=== PATIENT | female | born 1965 | race Caucasian/White ===

== ENCOUNTER 2018-11-14 10:15 | Day surgery (SDC) | payer OTHER ==
[~2018-11-14] VITALS: Ht 154.9 cm; Wt 117.0 kg
[~2018-11-14 10:15] MED LIST: ALBU90OI INH; AMLO5 PO; ANORO ELLIPTA1 EACH INH; ASPI81CH; Adipex-P37.5 MG PO; BLOOD PRESSURE MED; DHEA PO; ESTR2 PO; LEVO-T100 MCG PO; LORA1 PO; MELO7.5 PO; METF500C PO; NAPR500 PO; PARO10 PO; PROBIOTIC1 EAC1 PO; PROG100 PO
--- NOTE | 2018-11-14 12:04 | NUR ---
PT ADMITTED TO [facility]. AGREES WITH PLANNED PROCEDURE. MEDS, ALLERGIES AND HX REVIEWED. LUNG SOUNDS CLEAR.
--- NOTE | 2018-11-14 12:12 | NUR ---
TOLERATED BOWEL PREP. STATES LAST BM CLEAR.
--- NOTE | 2018-11-14 12:28 | NUR ---
11/14/18 1228 Dean Arvizu 3-LEAD EKG REVIEWED WITH PHYSICIAN PRIOR TO START OF PROCEDURE.PATIENT CONFIRMS NPO STATUS AND AGREES WITH SCHEDULED PROCEDURE.History, Chart, Medications and Allergies reviewed before start of procedure. MONITOR INTACT WITH CONTINUOUS PULSE OXIMETRY AND INTERMITTENT BP.O2 VIA N/C INTACT THROUGHOUT SEDATION/PROCEDURE.
--- NOTE | 2018-11-14 13:49 | NUR ---
Patient up to Ambulate independently. Gait steady. Discharge instructions reviewed with patient. Patient verbalizes understanding. Copy given to patient to take home. Patient States Post-Procedure ride home has been arranged. Discharged via wheelchair to private car for ride home. Pt's daughter was waiting in the parking lot and provided the ride home.
== END 2018-11-14 22:37 | disposition home or self-care (01) ==
LOC: ORSCMMR 10:15 → ORD 11:45 → ORSCMMR 22:37
PROVIDERS: Surgery
PROC: 0DJD8ZZ Inspection of Lower Intestinal Tract, Via Natural or Artificial Opening Endoscopic (ICD-10-PCS; principal; 2018-11-14 11:45)
DX: K92.1 Melena (principal); K57.30 Diverticulosis of large intestine without perforation or abscess without bleeding; R10.32 Left lower quadrant pain; G47.33 Obstructive sleep apnea (adult) (pediatric); E11.9 Type 2 diabetes mellitus without complications; J44.9 Chronic obstructive pulmonary disease, unspecified; I10 Essential (primary) hypertension; E03.9 Hypothyroidism, unspecified; K76.0 Fatty (change of) liver, not elsewhere classified; E78.5 Hyperlipidemia, unspecified; M79.7 Fibromyalgia; F41.9 Anxiety disorder, unspecified; E66.01 Morbid (severe) obesity due to excess calories; Z68.42 Body mass index [BMI] 45.0-49.9, adult; Z79.84 Long term (current) use of oral hypoglycemic drugs; Z79.899 Other long term (current) drug therapy; Z87.891 Personal history of nicotine dependence
CPT/HCPCS: J7120

== ENCOUNTER 2019-04-13 18:32 | Emergency (ER) | payer OTHER ==
[~2019-04-13] VITALS: Ht 154.9 cm; Wt 117.9 kg
[2019-04-13] MEDS ORDERED: Cymbalta20 MG PO (18:45)
[2019-04-13] MEDS ORDERED: BUSP5 (18:45)
[2019-04-13] MEDS ORDERED: Valium5 MG PO (21:32)
[2019-04-13] MEDS ORDERED: NAPR550 PO (21:32)
[2019-04-13] MEDS ORDERED: Norco 5-325 Ta1 EACH PO (21:32)
== END 2019-04-13 23:03 | disposition home or self-care (01) ==
LOC: ER 18:32
DX: S52.122A Displaced fracture of head of left radius, initial encounter for closed fracture (principal); S70.12XA Contusion of left thigh, initial encounter; K21.9 Gastro-esophageal reflux disease without esophagitis; I10 Essential (primary) hypertension; W01.0XXA Fall on same level from slipping, tripping and stumbling without subsequent striking against object, initial encounter
CPT/HCPCS: 73080; 73200; 73502; 73552; 96374; 96375; 99284-25; A9270; J1170; J1885; J2060

== ENCOUNTER → 2019-07-05 | Outpatient (CLI) | payer OTHER ==
[~2019-07-05] MED LIST changes: +BUSP5; +Cymbalta20 MG PO; +NAPR550 PO; +Norco 5-325 Ta1 EACH PO; +Valium5 MG PO
== END ==
LOC: LAB 19:47 → LAB SHORT 19:47
DX: E55.9 Vitamin D deficiency, unspecified (principal)
CPT/HCPCS: 82306

== ENCOUNTER 2019-08-25 15:01 | Emergency (ER) | payer OTHER ==
[~2019-08-25] VITALS: Ht 157.5 cm; Wt 115.2 kg
[2019-08-25 15:49] LABS: BASOPHILS ABSOLUTE AUTO 0.05 K/mm3 (0.00-0.23); BASOPHILS PERCENT AUTO 0 % (0-2); EOSINOPHILS ABSOLUTE AUTO 0.15 K/mm3 (0.00-0.68); EOSINOPHILS PERCENT AUTO 1 % (0-6); Hematocrit 46.9 % (33.0-51.0); IMMATURE GRAN ABSOLUTE AUTO 0.04 K/mm3 (0.00-0.10); IMMATURE GRAN PERCENT AUTO 0 % (0-1); LYMPHOCYTES ABSOLUTE AUTO 5.37 K/mm3 (0.84-5.20); LYMPHOCYTES PERCENT AUTO 39 % (21-46); MONOCYTES ABSOLUTE AUTO 1.06 K/mm3 (0.16-1.47); MONOCYTES PERCENT AUTO 8 % (4-13); Mean Corpuscular HGB 28.6 pg (26.0-34.0); Mean Corpuscular Volume 90 fL (80-100); Mean Platelet Volume 10.8 fL (9.1-12.4); NEUTROPHILS ABSOLUTE AUTO 7.22 K/mm3 (1.96-9.15); NEUTROPHILS PERCENT AUTO 52 % (41-73); Platelet Count 342 K/mm3 (150-400); RDW Coefficient Variation 13.9 % (11.7-14.2); RDW Standard Deviation 45.6 fL (35.1-46.3); Red Blood Cell Count 5.24 M/mm3 (3.80-5.20); White Blood Cell Count 13.89 K/mm3 (4.00-11.30)
[2019-08-25 16:23] LABS: Alanine Aminotransfer (ALT/SGP 29 U/L (12-78); Albumin, Blood 3.6 g/dL (3.4-5.0); Albumin/Globulin Ratio 0.9 (0.8-1.8); Alk Phos 76 U/L (50-136); Anion Gap 5 mmol/L (6-16); Aspartate Aminotrans (AST/SGOT 14 U/L (12-37); Bilirubin, Total 0.2 mg/dL (0.1-1.0); Blood Urea Nitrogen 19 mg/dL (8-24); Bun/Creatinine Ratio 23.8 (12.0-20.0); CO2, Blood 29 mmol/L (21-32); Calcium, Blood 9.4 mg/dL (8.5-10.1); Chloride, Blood 108 mmol/L (98-108); Globulin, Blood 3.9 g/dL (2.2-4.0); Glomerular Filtration Rate >60 (60-); Glucose, Blood 66 mg/dL (70-99); Potassium, Blood 4.3 mmol/L (3.5-5.5); Sodium, Blood 142 mmol/L (136-145); Total Protein, Blood 7.5 g/dL (6.4-8.2)
[2019-08-25 20:57] LABS: Source, Urine Clean Catch
[2019-08-25 21:00] LABS: Bilirubin, Urine Neg (Neg); Blood, Urine Neg (Neg); Glucose Qualitative, Urine Neg (Neg); Ketones, Urine Neg (Neg); Leukocyte Esterase, Urine Neg (Neg); Nitrite, Urine Neg (Neg); Protein, Urine Neg (Neg); Urobilinogen, Urine NORM (Normal)
[2019-08-25 21:05] LABS: Appearance, Urine Clear (Clear); Color, Urine Yellow (P-Yellow)
[2019-08-25] MEDS ORDERED: ONDA4ODT MM (21:17)
== END 2019-08-25 21:33 | disposition home or self-care (01) ==
LOC: ER 15:01
PROVIDERS: Emergency Medicine; Physician Assistant
DX: E11.649 Type 2 diabetes mellitus with hypoglycemia without coma (principal); D72.829 Elevated white blood cell count, unspecified; I10 Essential (primary) hypertension; K21.9 Gastro-esophageal reflux disease without esophagitis; J44.9 Chronic obstructive pulmonary disease, unspecified; Z91.038 Other insect allergy status; Z91.048 Other nonmedicinal substance allergy status; Z88.7 Allergy status to serum and vaccine; Z88.5 Allergy status to narcotic agent; Z91.040 Latex allergy status; Z91.018 Allergy to other foods; Z79.899 Other long term (current) drug therapy; Z79.51 Long term (current) use of inhaled steroids; Z87.891 Personal history of nicotine dependence
CPT/HCPCS: 36415; 71046; 80053; 81003; 82947; 83880; 84439; 84443; 84484; 85025; 85379; 93005; 93010; 96360; 99285-25; J7030

== ENCOUNTER 2020-02-07 05:34 | Day surgery (SDC) | payer OTHER ==
[~2020-02-07] VITALS: Ht 154.9 cm; Wt 122.0 kg
[~2020-02-07 05:34] MED LIST changes: +ASPI81CH PO; +BUSP10 PO; +CLOP75 PO; +ONDA4ODT MM
[2020-02-07] MEDS ORDERED: CARV6.25 PO (06:32)
[2020-02-07] MEDS ORDERED: ATOR80 PO (06:32)
[2020-02-07] MEDS ORDERED: MELO7.5 PO (06:33)
[2020-02-07] MEDS ORDERED: EPIPEN0.3 MG/0.3 IM (06:33)
--- NOTE | 2020-02-07 07:40 | NUR ---
PT RETURNED TO RECOVERY ROOM IN [facility]. RIGHT RADIAL TR BAND SITE SOFT WITH NO HEMATOMA, NO BLEEDING. PT SITTING UP TALKING WITH DR QUINTANILLA. CALL LIGHT IN REACH.
--- NOTE | 2020-02-07 08:02 | NUR ---
NO CHANGES TO RIGHT RADIAL SITE.
--- NOTE | 2020-02-07 08:29 | NUR ---
NO CHANGES TO RIGHT TR BAND SITE. PT EATING BREAKFAST.
--- NOTE | 2020-02-07 09:11 | NUR ---
PT AMBULATED TO BR TO VOID. TRACK OOZING NOTED; 2 CC OF AIR ADDED TO TR BAND. RIGHT INDEX FINGER LESS THAN 3 SEC CAP REFILL. SPO2 95% RIGHT INDEX FINGER.
--- NOTE | 2020-02-07 09:42 | NUR ---
9 CC OF AIR REMOVED FROM NOW DEFLATED RIGHT TR BAND; NO HEMATOMA, NO BLEEDING. DISCHARGE INSTRUCTIONS REVIEWED, ALL QUESTIONS ANSWERED.
--- NOTE | 2020-02-07 10:00 | NUR ---
NO CHANGES TO DEFLATED RIGHT TR BAND.
--- NOTE | 2020-02-07 10:11 | NUR ---
NO CHANGES TO DEFLATED RIGHT TR BAND SITE.
--- NOTE | 2020-02-07 10:48 | NUR ---
DEFLATED RIGHT TR BAND REMOVED AND POLYMEM PLACED OVER RIGHT RADIAL SITE; NO HEMATOMA, NO BLEEDING WITH WRIST BOARD IN PLACE. 20 G IV REMOVED FROM LEFT AC WITH INTACT CANNULA. PT AMBULATED TO BR TO VOID. PT ESCORTED OUT VIA WHEELCHAIR ESCORT.
== END 2020-02-07 10:53 | disposition home or self-care (01) ==
LOC: MHTC 05:34
PROC: 4A023N7 Measurement of Cardiac Sampling and Pressure, Left Heart, Percutaneous Approach (ICD-10-PCS; principal; 2020-02-07)
PROC: B2111ZZ Fluoroscopy of Multiple Coronary Arteries using Low Osmolar Contrast (ICD-10-PCS; principal; 2020-02-07)
DX: R94.39 Abnormal result of other cardiovascular function study (principal); I10 Essential (primary) hypertension; E78.5 Hyperlipidemia, unspecified; E11.9 Type 2 diabetes mellitus without complications; E03.9 Hypothyroidism, unspecified; J44.9 Chronic obstructive pulmonary disease, unspecified; E66.01 Morbid (severe) obesity due to excess calories; Z88.5 Allergy status to narcotic agent; Z91.013 Allergy to seafood; Z79.02 Long term (current) use of antithrombotics/antiplatelets; Z79.82 Long term (current) use of aspirin; Z79.899 Other long term (current) drug therapy; Z87.891 Personal history of nicotine dependence
CPT/HCPCS: 93458; 99152; 99153; C1769; C1894; J1644; J2250; J3010; J7030; Q9967

== ENCOUNTER 2021-07-10 10:55 | Day surgery (SDC) | payer OTHER ==
[~2021-07-10] VITALS: Ht 154.9 cm; Wt 121.3 kg
[~2021-07-10 10:55] MED LIST changes: +ATOR80 PO; +CARV6.25 PO; +EPIPEN0.3 MG/0.3 IM
[2021-07-10] MEDS ORDERED: Bisoprolol Fuma10 MG PO (14:08)
[2021-07-10] MEDS ORDERED: POTCHL20ER PO (14:08)
[2021-07-10] MEDS ORDERED: CELE100 PO (14:09)
[2021-07-10] MEDS ORDERED: Cymbalta20 MG PO (14:10)
[2021-07-10] MEDS ORDERED: TORSE20 PO (14:11)
--- NOTE | 2021-07-10 14:49 | NUR ---
07/10/21 1449 Jocy Elaine (Trena 9 IV ATTEMPTS BY FOUR RN & ONE MA. PT TOLERATED VERY WELL, STS IT ALWAYS TAKES SEVERAL ATTEMPTS. PT STS ANESTHESIOLOGIST USUALLY HAVE TO PLACE IV. PT REQUESTED CONTINUED ATTEMPTS SHE DID NOT WANT HER PROCEDURE TO BE CANCELLED.
--- NOTE | 2021-07-10 15:18 | NUR ---
07/10/21 1517 Chemo Herrera 1 MG EPI ADDED TO EACH OF THE FIRST 3 BAGS OF LR PER ORDER FOR IRRIGATION.
--- NOTE | 2021-07-10 16:37 | NUR ---
07/10/21 1637 Colin,Amy PT RECIEVED FROM OR ACCOMPANIED BY DR. NAVARRETE. AMBU BAG USED BREIFLY FOR CYANOSIS/APNEA UNABLE TO OBTAIN PULSE OX. PT. AWAKENED AND COLOR/OXYGENATION IMPROVED. O2 SAT UP TO 88% ON NRB. ALBUTEROL NEB ORDERED AND GIVEN. PT. O2 SAT INCREASED TO 92% ON THE NEB. CONTINUED TO IMPROVE OVER COURSE OF 5-10 MINUTES. NOW AT 94% ON 8LNRB MASK. LUNGS HAVE WHEEZES THAT ARE SLIGHTLY DECREASED THAN PRIOR TO TREATMENT.
--- NOTE | 2021-07-10 17:51 | NUR ---
07/10/21 1751 Babita Galloway 1749 O2 AT 94% ON 2L/NC. PT. PLACED TO RA.
== END 2021-07-10 19:10 | disposition home or self-care (01) ==
LOC: ORSCSDS 10:55
PROVIDERS: Orthopaedic Surgery
PROC: 0RNK4ZZ Release Left Shoulder Joint, Percutaneous Endoscopic Approach (ICD-10-PCS; principal; 2021-07-10 12:30)
PROC: 0LM24ZZ Reattachment of Left Shoulder Tendon, Percutaneous Endoscopic Approach (ICD-10-PCS; principal; 2021-07-10 12:30)
DX: M75.122 Complete rotator cuff tear or rupture of left shoulder, not specified as traumatic (principal); M75.22 Bicipital tendinitis, left shoulder; M75.42 Impingement syndrome of left shoulder; M75.32 Calcific tendinitis of left shoulder; I10 Essential (primary) hypertension; J44.9 Chronic obstructive pulmonary disease, unspecified; K21.9 Gastro-esophageal reflux disease without esophagitis; E03.9 Hypothyroidism, unspecified; E78.5 Hyperlipidemia, unspecified; F41.8 Other specified anxiety disorders; E66.01 Morbid (severe) obesity due to excess calories; Z68.43 Body mass index [BMI] 50.0-59.9, adult; Z79.899 Other long term (current) drug therapy
CPT/HCPCS: 82947; A9270; C1713; J0171; J0690; J1100; J2001; J2250; J2405; J2704; J3010; J7120

== ENCOUNTER → 2022-02-05 | Outpatient (CLI) | payer OTHER ==
[~2022-02-05] MED LIST changes: +Bisoprolol Fuma10 MG PO; +CELE100 PO; +POTCHL20ER PO; +TORSE20 PO
[2022-02-05 14:10] LABS: BASOPHILS ABSOLUTE AUTO 0.04 K/mm3 (0.00-0.23); BASOPHILS PERCENT AUTO 0 % (0-2); EOSINOPHILS ABSOLUTE AUTO 0.15 K/mm3 (0.00-0.68); EOSINOPHILS PERCENT AUTO 1 % (0-6); Hematocrit 49.5 % (33.0-51.0); Hemoglobin 16.2 g/dL (11.5-16.0); IMMATURE GRAN ABSOLUTE AUTO 0.05 K/mm3 (0.00-0.10); IMMATURE GRAN PERCENT AUTO 0 % (0-1); LYMPHOCYTES ABSOLUTE AUTO 3.63 K/mm3 (0.84-5.20); LYMPHOCYTES PERCENT AUTO 32 % (21-46); MONOCYTES ABSOLUTE AUTO 0.63 K/mm3 (0.16-1.47); MONOCYTES PERCENT AUTO 6 % (4-13); Mean Corpuscular HGB 29.2 pg (26.0-34.0); Mean Corpuscular HGB Conc 32.7 g/dL (31.5-36.5); Mean Corpuscular Volume 89 fL (80-100); Mean Platelet Volume 10.7 fL (9.1-12.4); NEUTROPHILS ABSOLUTE AUTO 6.83 K/mm3 (1.96-9.15); NEUTROPHILS PERCENT AUTO 60 % (41-73); Platelet Count 298 K/mm3 (150-400); RDW Coefficient Variation 14.4 % (11.7-14.2); RDW Standard Deviation 46.7 fL (35.1-46.3); Red Blood Cell Count 5.55 M/mm3 (3.80-5.20); White Blood Cell Count 11.33 K/mm3 (4.00-11.30)
[2022-02-05 14:36] LABS: Alanine Aminotransfer (ALT/SGP 32 U/L (12-78); Albumin, Blood 3.9 g/dL (3.4-5.0); Alk Phos 94 U/L (40-126); Anion Gap 10 mmol/L (6-16); Aspartate Aminotrans (AST/SGOT 18 U/L (12-37); Bilirubin, Total 0.3 mg/dL (0.1-1.0); Blood Urea Nitrogen 20 mg/dL (8-24); CO2, Blood 28 mmol/L (21-32); Calcium, Blood 9.5 mg/dL (8.5-10.1); Chloride, Blood 105 mmol/L (98-108); Creatinine, Blood 0.74 mg/dL (0.40-1.00); Globulin, Blood 3.8 g/dL (2.2-4.0); Glomerular Filtration Rate >60 (60-); Glucose, Blood 98 mg/dL (70-99); Potassium, Blood 4.6 mmol/L (3.5-5.5); Sodium, Blood 143 mmol/L (136-145); Thyroid Stimulating Hormone 0.493 uIU/mL (0.360-4.800); Total Protein, Blood 7.7 g/dL (6.4-8.2)
== END | disposition home or self-care (01) ==
LOC: LAB SHORT 14:03 → LAB 14:03
PROVIDERS: Chiropractor
DX: R07.9 Chest pain, unspecified (principal); R53.83 Other fatigue
CPT/HCPCS: 80053; 83880; 84443; 84484; 85025; 85379

== ENCOUNTER → 2022-04-15 | Outpatient (CLI) | payer OTHER ==
[2022-04-15 15:14] LABS: Source, Urine Clean Catch
[2022-04-15 19:26] LABS: Appearance, Urine Turbid (Clear); Bilirubin, Urine Neg (Neg); Blood, Urine 2+ (Neg); Color, Urine Yellow (P-Yellow); Glucose Qualitative, Urine Neg (Neg); Ketones, Urine Neg (Neg); Leukocyte Esterase, Urine 3+ (Neg); Nitrite, Urine Neg (Neg); Protein, Urine 2+ (Neg); Urobilinogen, Urine NORM (Normal)
[2022-04-15 20:05] LABS: Amorphous Heavy (0-Heavy); Bacteria Many /hpf; Red Blood Cells, Urine 0-2 /hpf (0-2); Squamous Epithelial Cells Few /hpf (Few); White Blood Cells, Urine 25-50 /hpf (0-5)
== END | disposition home or self-care (01) ==
LOC: LAB 15:10 → LAB SHORT 15:10
PROVIDERS: Family Medicine
DX: N30.01 Acute cystitis with hematuria (principal)
CPT/HCPCS: 81001; 87077; 87086; 87186

== ENCOUNTER → 2023-05-10 | Outpatient (CLI) | payer OTHER ==
[2023-05-10 15:04] LABS: Percent Saturation 15.4 % (15.0-50.0)
[2023-05-10 15:11] LABS: Progesterone 4.56 ng/mL
[2023-05-11 23:07] LABS: DHEA-SULFATE 17.3 ug/dL (29.4-220.5)
== END | disposition home or self-care (01) ==
LOC: LAB 12:57 → LAB SHORT 12:57
PROVIDERS: Family Medicine
DX: E05.90 Thyrotoxicosis, unspecified without thyrotoxic crisis or storm (principal); L65.9 Nonscarring hair loss, unspecified; Z86.39 Personal history of other endocrine, nutritional and metabolic disease; Z90.79 Acquired absence of other genital organ(s)
CPT/HCPCS: 82627; 82670; 82728; 83540; 83550; 84144; 86376

== ENCOUNTER 2023-06-26 09:33 | Emergency (ER) | payer OTHER ==
[~2023-06-26] VITALS: Ht 154.9 cm; Wt 108.9 kg
[2023-06-26 09:35] VITALS: BP 128/65
[2023-06-26 11:21] LABS: Source, Urine Clean Catch
[2023-06-26 11:33] LABS: Appearance, Urine Clear (Clear); Bilirubin, Urine Neg (Neg); Blood, Urine Neg (Neg); Color, Urine Yellow (P-Yellow); Glucose Qualitative, Urine Neg (Neg); Ketones, Urine Neg (Neg); Leukocyte Esterase, Urine Neg (Neg); Nitrite, Urine Neg (Neg); Protein, Urine Neg (Neg); Urobilinogen, Urine NORM (Normal)
[2023-06-26] MEDS ORDERED: ACET500 PO (12:02)
[2023-06-26] MEDS ORDERED: DIAZ2 PO (12:02)
[2023-06-26] MEDS ORDERED: Ibuprofen600 MG PO (12:02)
[2023-06-30] MEDS ORDERED: DIAZ2 PO (15:22)
[2023-06-30] MEDS ORDERED: ACET500 PO (15:22)
[2023-06-30] MEDS ORDERED: Ibuprofen600 MG PO (15:22)
== END 2023-06-26 13:00 | disposition home or self-care (01) ==
LOC: ER 09:33
PROVIDERS: Emergency Medicine
DX: M51.36 Other intervertebral disc degeneration, lumbar region (principal); R10.30 Lower abdominal pain, unspecified; I10 Essential (primary) hypertension; J44.9 Chronic obstructive pulmonary disease, unspecified; Z91.030 Bee allergy status; Z91.013 Allergy to seafood; Z91.048 Other nonmedicinal substance allergy status; Z88.5 Allergy status to narcotic agent; Z91.040 Latex allergy status; Z88.8 Allergy status to other drugs, medicaments and biological substances; Z91.018 Allergy to other foods; Z79.899 Other long term (current) drug therapy; Z87.891 Personal history of nicotine dependence
CPT/HCPCS: 72131; 81003; 96372; 99284-25; J1885; J7512

== ENCOUNTER 2023-07-20 13:43 | Emergency (ER) | payer OTHER ==
[~2023-07-20] VITALS: Ht 167.6 cm; Wt 72.6 kg
[~2023-07-20 13:43] MED LIST changes: +ACET500 PO; +DIAZ2 PO; +Ibuprofen600 MG PO
[2023-07-20 14:15] VITALS: BP 130/56
== END 2023-07-20 14:21 | disposition home or self-care (01) ==
LOC: ER 13:43
DX: F41.9 Anxiety disorder, unspecified (principal); I10 Essential (primary) hypertension; J44.9 Chronic obstructive pulmonary disease, unspecified; Z91.030 Bee allergy status; Z91.013 Allergy to seafood; Z91.018 Allergy to other foods; Z91.040 Latex allergy status; Z88.8 Allergy status to other drugs, medicaments and biological substances; Z91.048 Other nonmedicinal substance allergy status; Z79.890 Hormone replacement therapy; Z79.899 Other long term (current) drug therapy; Z87.891 Personal history of nicotine dependence
CPT/HCPCS: 99284

== ENCOUNTER → 2023-10-19 | Outpatient (CLI) | payer OTHER | END | disposition home or self-care (01) | LOC: LAB 18:48 → LAB SHORT 18:48 | DX: E03.9 Hypothyroidism, unspecified (principal) | CPT/HCPCS: 84443 ==

== ENCOUNTER 2024-04-14 13:07 | Observation (INO) | payer OTHER ==
[~2024-04-14] VITALS: Ht 154.9 cm; Wt 99.8 kg
[2024-04-14 13:35] VITALS: BP 134/70
[2024-04-14 14:44] LABS: BASOPHILS ABSOLUTE AUTO 0.06 K/mm3 (0.00-0.23); BASOPHILS PERCENT AUTO 0 % (0-2); EOSINOPHILS ABSOLUTE AUTO 0.03 K/mm3 (0.00-0.68); EOSINOPHILS PERCENT AUTO 0 % (0-6); Hemoglobin 14.5 g/dL (11.5-16.0); IMMATURE GRAN PERCENT AUTO 1 % (0-1); LYMPHOCYTES ABSOLUTE AUTO 3.05 K/mm3 (0.84-5.20); LYMPHOCYTES PERCENT AUTO 21 % (21-46); MONOCYTES ABSOLUTE AUTO 0.76 K/mm3 (0.16-1.47); MONOCYTES PERCENT AUTO 5 % (4-13); Mean Corpuscular HGB 30.1 pg (26.0-34.0); Mean Corpuscular Volume 91 fL (80-100); Mean Platelet Volume 10.5 fL (9.1-12.4); NEUTROPHILS ABSOLUTE AUTO 10.43 K/mm3 (1.96-9.15); NEUTROPHILS PERCENT AUTO 72 % (41-73); Platelet Count 490 K/mm3 (150-400); RDW Coefficient Variation 14.1 % (11.7-14.2); RDW Standard Deviation 47.3 fL (35.1-46.3); Red Blood Cell Count 4.82 M/mm3 (3.80-5.20); White Blood Cell Count 14.43 K/mm3 (4.00-11.30)
[2024-04-14 14:55] LABS: Albumin, Blood 3.8 g/dL (3.4-5.0); Albumin/Globulin Ratio 0.9 (0.8-1.8); Bilirubin, Total 0.7 mg/dL (0.1-1.0); Bun/Creatinine Ratio 20.7 (12.0-20.0); Calcium, Blood 9.3 mg/dL (8.5-10.1); Creatinine, Blood 0.63 mg/dL (0.40-1.00); Globulin, Blood 4.1 g/dL (2.2-4.0); Potassium, Blood 4.3 mmol/L (3.5-5.5); Total Protein, Blood 7.9 g/dL (6.4-8.2)
[2024-04-14 15:12] LABS: Influenza A, PCR NEGATIVE (NEGATIVE); Influenza B, PCR NEGATIVE (NEGATIVE); Resp Syncytial Virus, PCR NEGATIVE (NEGATIVE); SARS-Cov-2 (COVID-19) PCR, MMC NEGATIVE (NEGATIVE)
[2024-04-14 16:01] LABS: Source, Urine Clean Catch
[2024-04-14 16:07] LABS: Appearance, Urine Clear (Clear); Bilirubin, Urine Neg (Neg); Blood, Urine Neg (Neg); Color, Urine Yellow (P-Yellow); Glucose Qualitative, Urine Neg (Neg); Ketones, Urine 2+ (Neg); Leukocyte Esterase, Urine Neg (Neg); Nitrite, Urine Neg (Neg); Protein, Urine Neg (Neg); Urobilinogen, Urine NORM (Normal)
[2024-04-14 16:22] LABS: U Amphetamine Screen Not Detected; U Barbituate Screen Not Detected; U Benzodiazapine Screen Not Detected; U Buprenorphine Screen Not Detected; U Cannabinoids Screen DETECTED; U Cocaine Screen Not Detected; U Methadone Screen Not Detected; U Methamphetamine Screen Not Detected; U Opiates Screen Not Detected; U Oxycodone Screen Not Detected; U Phencyclidine Screen Not Detected
== END 2024-04-14 17:40 | disposition other institution (70) ==
LOC: ER 13:07 → EOR 13:08
PROVIDERS: ADMIT Emergency Medicine
DX: F32.A Depression, unspecified (principal); R45.851 Suicidal ideations; R45.850 Homicidal ideations; K21.9 Gastro-esophageal reflux disease without esophagitis; J44.9 Chronic obstructive pulmonary disease, unspecified; I10 Essential (primary) hypertension; Z87.891 Personal history of nicotine dependence; Z88.5 Allergy status to narcotic agent; Z88.8 Allergy status to other drugs, medicaments and biological substances; Z79.890 Hormone replacement therapy; Z79.899 Other long term (current) drug therapy
CPT/HCPCS: 0241U; 80053; 81003; 84443; 85025; 86592; 99285; G0378

== ENCOUNTER 2024-05-01 10:51 | Emergency (ER) | payer OTHER ==
[~2024-05-01] VITALS: Ht 154.9 cm; Wt 99.8 kg
[2024-05-01 11:25] VITALS: BP 140/65
== END 2024-05-01 11:36 | disposition home or self-care (01) ==
LOC: ER 10:51
DX: M25.552 Pain in left hip (principal); K21.9 Gastro-esophageal reflux disease without esophagitis; I10 Essential (primary) hypertension; J44.9 Chronic obstructive pulmonary disease, unspecified; W01.0XXA Fall on same level from slipping, tripping and stumbling without subsequent striking against object, initial encounter; Z87.891 Personal history of nicotine dependence; Z79.899 Other long term (current) drug therapy; Z88.5 Allergy status to narcotic agent; Z91.040 Latex allergy status; Z91.030 Bee allergy status; Z91.013 Allergy to seafood; Z91.048 Other nonmedicinal substance allergy status; Z88.8 Allergy status to other drugs, medicaments and biological substances
CPT/HCPCS: 99283-25

== ENCOUNTER → 2024-05-04 | Outpatient (CLI) | payer OTHER ==
[2024-05-04 15:22] LABS: Source, Urine Clean Catch
[2024-05-04 19:35] LABS: Appearance, Urine Turbid (Clear); Bilirubin, Urine Neg (Neg); Blood, Urine Neg (Neg); Color, Urine Yellow (P-Yellow); Glucose Qualitative, Urine Neg (Neg); Ketones, Urine Neg (Neg); Leukocyte Esterase, Urine 1+ (Neg); Nitrite, Urine Neg (Neg); Protein, Urine 1+ (Neg); Specific Gravity, Urine 1.025 (1.003-1.022); Urobilinogen, Urine NORM (Normal)
[2024-05-04 19:47] LABS: Amorphous Heavy (0-Heavy); Bacteria Mod /hpf; Mucus Light (0-Heavy); Red Blood Cells, Urine 0-2 /hpf (0-2); Squamous Epithelial Cells Few /hpf (Few); Transitional Epithelial Cells Rare /hpf (0-Rare)
== END ==
LOC: LAB 15:20 → LAB SHORT 15:20
PROVIDERS: Family Medicine
DX: R30.9 Painful micturition, unspecified (principal)
CPT/HCPCS: 81001; 87077; 87086; 87186

== ENCOUNTER 2024-07-26 08:30 | Day surgery (SDC) | payer OTHER ==
[~2024-07-26] VITALS: Ht 154.9 cm; Wt 93.4 kg
[~2024-07-26 08:30] MED LIST changes: +Lidocaine 2%-Epineph 1:200000 20 ML SDV ONE
[2024-07-26] MEDS ORDERED: Lactated Ringer's 1,000 ML IV ONE ×2 (09:17→09:30)
[2024-07-26 09:31] VITALS: BP 110/73
[2024-07-26] MEDS ORDERED: ALBUTEROL SULFATE HF (09:33)
[2024-07-26] MEDS ORDERED: ARNUITY ELLIP200 MCG IH (09:33)
[2024-07-26] MEDS ORDERED: ANORO ELLIPTA1 EAC1 IH (09:38)
[2024-07-26] MEDS ORDERED: MOUNJARO10 MG/0.5 SQ (09:41)
--- NOTE | 2024-07-26 10:18 | NUR ---
07/26/24 Daisy8 Aisha Mg 0945: DR ZAVALA AND DR RAZO NOTIFIED THAT PATIENT LAST TOOK HER MOUNJARO ON Wednesday07-23-24. PER CARLINE ZAVALA AND DUNG THAT NEEDS TO BE HELD 1 WEEK PRIOR TO PROCEDURE, SO CASE NEEDS TO BE CANCELLED AND RESCHEDULED. 0950: COMMUNICATED THE ABOVE TO PATIENT AND CALLED RIDE AND SUPPLIED HER BELONGINGS. 0952: IV REMOVED. GLASSES AND TOE RINGS IN PATIENT'S BELONGINGS RETURNED TO HER. 1010: PATIENT DISCHARGED.
== END 2024-07-26 10:10 | disposition home or self-care (01) ==
LOC: ORSCSDS 08:30
DX: J34.2 Deviated nasal septum (principal); J34.3 Hypertrophy of nasal turbinates; Z53.9 Procedure and treatment not carried out, unspecified reason; E11.9 Type 2 diabetes mellitus without complications; Z87.891 Personal history of nicotine dependence; J44.9 Chronic obstructive pulmonary disease, unspecified; E66.9 Obesity, unspecified; Z68.38 Body mass index [BMI] 38.0-38.9, adult
CPT/HCPCS: 82947; J7120

== ENCOUNTER 2024-10-15 16:45 | Inpatient (IN) | payer OTHER ==
[~2024-10-15] VITALS: Ht 154.9 cm; Wt 100.0 kg
[~2024-10-15 16:45] MED LIST changes: +ANORO ELLIPTA1 EAC1 INH; +ARNUITY ELLIP200 MCG INH; +ATOR40TA PO; -ATOR80 PO; -BUSP10 PO; +Buspirone HCl15 MG PO; +EUTHYROX50 MCG PO; -LEVO-T100 MCG PO; -Lidocaine 2%-Epineph 1:200000 20 ML SDV ONE; +MOUNJARO10 MG/0.5 SQ
[2024-10-15 17:23] LABS: BASOPHILS ABSOLUTE AUTO 0.05 K/mm3 (0.00-0.23); BASOPHILS PERCENT AUTO 0 % (0-2); EOSINOPHILS ABSOLUTE AUTO 0.03 K/mm3 (0.00-0.68); EOSINOPHILS PERCENT AUTO 0 % (0-6); Hematocrit 38.5 % (33.0-51.0); Hemoglobin 12.8 g/dL (11.5-16.0); IMMATURE GRAN ABSOLUTE AUTO 0.13 K/mm3 (0.00-0.10); IMMATURE GRAN PERCENT AUTO 1 % (0-1); LYMPHOCYTES PERCENT AUTO 11 % (21-46); MONOCYTES ABSOLUTE AUTO 1.12 K/mm3 (0.16-1.47); MONOCYTES PERCENT AUTO 5 % (4-13); Mean Corpuscular HGB 30.2 pg (26.0-34.0); Mean Corpuscular HGB Conc 33.2 g/dL (31.5-36.5); Mean Corpuscular Volume 91 fL (80-100); Mean Platelet Volume 9.8 fL (9.1-12.4); NEUTROPHILS PERCENT AUTO 83 % (41-73); Platelet Count 443 K/mm3 (150-400); RDW Coefficient Variation 13.7 % (11.7-14.2); RDW Standard Deviation 46.3 fL (35.1-46.3); Red Blood Cell Count 4.24 M/mm3 (3.80-5.20); White Blood Cell Count 20.63 K/mm3 (4.00-11.30)
[2024-10-15 17:41] LABS: Albumin, Blood 2.9 g/dL (3.4-5.0); Albumin/Globulin Ratio 0.7 (0.8-1.8); Bilirubin, Total 0.7 mg/dL (0.1-1.0); Bun/Creatinine Ratio 14.3 (12.0-20.0); Creatinine, Blood 0.7 mg/dL (0.40-1.00); Total Protein, Blood 6.9 g/dL (6.4-8.2)
[2024-10-15] MEDS ORDERED: PROG100 PO (21:22)
[2024-10-15] MEDS ORDERED: SERT25 PO (21:22)
[2024-10-15] MEDS ORDERED: Vancomycin HCL 1,750 MG in NS 518 ML IV ONE (21:40)
[2024-10-15] MEDS ORDERED: NS 1,000 ML IV SCH ×2 (21:55→23:00)
[2024-10-15] MEDS ORDERED: FentaNYL Citrate 50 MCG/ML 2 ML Injection IV ONE (21:55)
[2024-10-15] MEDS ORDERED: CefTRIAXone Sodium 1,000 MG in NS 50 ML IV ONE (22:20)
[2024-10-15] MEDS ORDERED: FLU VACC TS2024-25(6MOS UP)/PF 45 MCG/0.5 ML SYRINGE IM ONE (22:50)
[2024-10-15] MEDS ORDERED: FentaNYL Citrate 50 MCG/ML 2 ML Injection IV PRN (22:50)
[2024-10-15] MEDS ORDERED: Ondansetron HCl 2 MG / ML 2ML Vial IV PRN (22:50)
[2024-10-15] MEDS ORDERED: Lactobacil 2-S.Thermo-Bifido 1 1 Cap PO SCH (23:00)
[2024-10-15] MEDS ORDERED: Piperacillin/Tazobactam Sod 3.375 GM in NS 100 ML IV SCH (23:04)
[2024-10-16 01:25] VITALS: BP 100/47
[2024-10-16] MEDS ORDERED: CYCL10 PO (01:31)
[2024-10-16] MEDS ORDERED: GABA300 PO (01:33)
[2024-10-16] MEDS ORDERED: FentaNYL Citrate 50 MCG/ML 2 ML Injection IV PRN (02:25)
[2024-10-16] MEDS ORDERED: Cyclobenzaprine HCl 10 MG Tab PO ONE (03:15)
[2024-10-16] MEDS ORDERED: Vancomycin HCL 500 MG in NS 250 ML IV ONE (03:25)
--- NOTE | 2024-10-16 08:36 | NUR ---
Rn shift summary: Patient was received via W/C from the ER. Patient is alert and oriented. Patient has an incision down her back from just below waist to tailbone. [place] are intact. Area is red and pt having yellow, simmons exudate. Pt had drainage spurt in car and in ER lobby. Pt has no motor deficits, sl numbness in left toes since surgery. Pt having pain. Call placed to hospitalist, Dr. Hopkins. Pt given her flexeril and increased fentanyl dose. Pt has remained fairly painful and restless in bed. Pt thashes around. Ice to back incision is very helpful with pain. Patient is able to ambulate to BR, just needs assist with IV pole and tele. Plan is for PT to be transferred to M/W in [place] to her surgeon. Pt is able to make needs known.
[2024-10-16 08:42] VITALS: BP 113/70
[2024-10-16] MEDS ORDERED: Cyclobenzaprine HCl 10 MG Tab PO SCH (09:00)
[2024-10-16] MEDS ORDERED: OxyCODONE HCL 5 MG TAB PO PRN (09:05)
[2024-10-16] MEDS ORDERED: Mometasone Furoate Inhaler 220 mcg 14 ACT INH SCH (09:15)
[2024-10-16] MEDS ORDERED: Gabapentin 300 MG Cap PO SCH (14:00)
[2024-10-16] MEDS ORDERED: Vancomycin HCL 1,500 MG in NS 250 ML IV SCH (15:00)
[2024-10-16] MEDS ORDERED: Heparin Sodium,Porcine 5,000 UNIT/0.5 ML SDV SC SCH (16:00)
[2024-10-16] MEDS ORDERED: Heparin Sodium 5000 Units/ML 1ML MDV SC SCH (16:40)
[2024-10-16 17:17] VITALS: BP 100/48
[2024-10-16 19:24] VITALS: BP 90/42
--- NOTE | 2024-10-16 19:32 | NUR ---
SHIFT SUMMARY PATIENT STATES PAIN THIS MORNING WAS 8/, DR. CAMARILLO NOTIFIED AND RESTARTED HOME OXY WITH REPORTED RELIEF. TRANSFER IS PROCESS TO [facility], BUT NO BEDS AVAILABLE TODAY. FULL LIQUID DIET STARTED AT LUNCH, AND WILL BE NPO AT MIDNIGHT PENDING POTENTIAL INTERVENTION AFTER TRANSFER. STAND-BY ASSIST TO BATHROOM. ABLE TO MAKE NEEDS KNOWN. INCISION TO MIDLINE BACK SATURATING ABD PAD AND CHAGNED TWICE TODAY. CALL LIGHT IN REACH. CALL APPROPRIATELY
[2024-10-16] MEDS ORDERED: Famotidine 20 MG Tab PO SCH (21:00)
[2024-10-16] MEDS ORDERED: Atorvastatin 40 MG Tab PO SCH (21:00)
[2024-10-16] MEDS ORDERED: Metoprolol Succinate 50 MG TABCR PO SCH (21:00)
[2024-10-16] MEDS ORDERED: BusPIRone HCl 10 MG Tab PO SCH (21:00)
[2024-10-17] MEDS ORDERED: Heparin Sodium,Porcine 5,000 UNIT/0.5 ML SDV SC SCH
[2024-10-17 02:04] LABS: BASOPHILS ABSOLUTE AUTO 0.07 K/mm3 (0.00-0.23); BASOPHILS PERCENT AUTO 1 % (0-2); EOSINOPHILS ABSOLUTE AUTO 0.36 K/mm3 (0.00-0.68); EOSINOPHILS PERCENT AUTO 4 % (0-6); Hematocrit 30.1 % (33.0-51.0); Hemoglobin 9.8 g/dL (11.5-16.0); IMMATURE GRAN ABSOLUTE AUTO 0.05 K/mm3 (0.00-0.10); IMMATURE GRAN PERCENT AUTO 1 % (0-1); LYMPHOCYTES ABSOLUTE AUTO 2.57 K/mm3 (0.84-5.20); LYMPHOCYTES PERCENT AUTO 26 % (21-46); MONOCYTES ABSOLUTE AUTO 0.83 K/mm3 (0.16-1.47); MONOCYTES PERCENT AUTO 8 % (4-13); Mean Corpuscular HGB 29.7 pg (26.0-34.0); Mean Corpuscular HGB Conc 32.6 g/dL (31.5-36.5); Mean Corpuscular Volume 91 fL (80-100); Mean Platelet Volume 9.9 fL (9.1-12.4); NEUTROPHILS ABSOLUTE AUTO 6.19 K/mm3 (1.96-9.15); NEUTROPHILS PERCENT AUTO 62 % (41-73); Platelet Count 341 K/mm3 (150-400); RDW Coefficient Variation 14.1 % (11.7-14.2); RDW Standard Deviation 47.3 fL (35.1-46.3); White Blood Cell Count 10.07 K/mm3 (4.00-11.30)
[2024-10-17 02:19] LABS: Vancomycin, Trough 12.3 ug/mL (5.0-10.0)
[2024-10-17 02:21] LABS: Bun/Creatinine Ratio 12.8 (12.0-20.0); Calcium, Blood 8.3 mg/dL (8.5-10.1); Creatinine, Blood 0.62 mg/dL (0.40-1.00); Potassium, Blood 3.5 mmol/L (3.5-5.5)
[2024-10-17 03:22] VITALS: BP 100/56
--- NOTE | 2024-10-17 05:31 | NUR ---
SHIFT SUMMARY PT ALERT AND ORIENTED TIMES 4.PT WAS RECEPTIVE TO CARE, TOOK HS MEDICATION AND IS APPROPRIATE WITH CALL LIGHT. PT ABLE TO MAKE NEEDS KNOWN. PT ABLE TO AMBULATE TO TOILET WITH STAND BY ASSIST. PT DRESSING CHANGED TWICE DURING THE NIGHT. THE FIRST CHANGE DRAINAGE WAS YELLOW-MIKE AND SOAKED THROUGH TO BEDDING. SECOND CHANGE WAS MORE OF A CLEAR COLOR WITH YELLOW TINGE AND JUST BARELY THROUGH THE DRESSING. CALL LIGHT WITHIN REACH, RAILS TIMES 2, BED IN LOW POSITION.
[2024-10-17 07:43] VITALS: BP 113/65
[2024-10-17] MEDS ORDERED: Levothyroxine Sodium 0.125 MG Tab PO SCH (09:00)
[2024-10-17] MEDS ORDERED: Sertraline HCl 50 MG Tab PO SCH (09:00)
[2024-10-17 15:01] VITALS: BP 94/45
[2024-10-17] MEDS ORDERED: NS 250 ML IV PRN (17:25)
[2024-10-17 19:26] VITALS: BP 103/45
--- NOTE | 2024-10-17 19:56 | NUR ---
SHIFT SUMMARY CULTURES OF DRAINAGE OBTAINED BUT SECOND CULTURE SENT DUE TO INADEQUATE SWAB THE FIRST TIME. NO ACTUAL HOLE TO CULTURE ABCESS DRAINAGE, OBTAINING FROM INCISION. NEW IV PLACED. STAND-BY ASSIST W/FWW UP TO BATHROOM. 1 LOOSE BM TODAY. NO BEDS AVAIL AT [facility]. STARTED ON REGULAR DIET PER DR. CAMARILLO. PENDING TRANSFER FOR HIGHER LEVEL CARE/INTERVENTION WITH PATIENTS SURGEON. CALLS APPROPRIATELY.
[2024-10-18 03:11] VITALS: BP 92/51
--- NOTE | 2024-10-18 04:45 | NUR ---
NOC SUMMARY- NO NEW ISSUES NOTED. PT DENIES INCREASED DISCOMFORT. PT DRESSING CHANGED NEEDED. PT HAS BEEN VOIDING WELL. PT AMBULATES TO BATHROOM WITHOUT ISSUES. CALL LIGHT IN REACH.
[2024-10-18 06:08] LABS: BASOPHILS ABSOLUTE AUTO 0.08 K/mm3 (0.00-0.23); BASOPHILS PERCENT AUTO 1 % (0-2); EOSINOPHILS ABSOLUTE AUTO 0.55 K/mm3 (0.00-0.68); EOSINOPHILS PERCENT AUTO 6 % (0-6); Hematocrit 32.7 % (33.0-51.0); Hemoglobin 10.2 g/dL (11.5-16.0); IMMATURE GRAN ABSOLUTE AUTO 0.08 K/mm3 (0.00-0.10); IMMATURE GRAN PERCENT AUTO 1 % (0-1); LYMPHOCYTES ABSOLUTE AUTO 3.02 K/mm3 (0.84-5.20); LYMPHOCYTES PERCENT AUTO 34 % (21-46); MONOCYTES ABSOLUTE AUTO 0.73 K/mm3 (0.16-1.47); MONOCYTES PERCENT AUTO 8 % (4-13); Mean Corpuscular HGB Conc 31.2 g/dL (31.5-36.5); Mean Corpuscular Volume 93 fL (80-100); Mean Platelet Volume 10.3 fL (9.1-12.4); NEUTROPHILS ABSOLUTE AUTO 4.52 K/mm3 (1.96-9.15); NEUTROPHILS PERCENT AUTO 50 % (41-73); Platelet Count 392 K/mm3 (150-400); RDW Coefficient Variation 14.4 % (11.7-14.2); Red Blood Cell Count 3.52 M/mm3 (3.80-5.20); White Blood Cell Count 8.98 K/mm3 (4.00-11.30)
[2024-10-18 06:40] LABS: Bun/Creatinine Ratio 13.2 (12.0-20.0); Calcium, Blood 8.8 mg/dL (8.5-10.1); Creatinine, Blood 0.83 mg/dL (0.40-1.00); Potassium, Blood 3.5 mmol/L (3.5-5.5)
[2024-10-18 07:18] VITALS: BP 100/58
[2024-10-18 11:42] VITALS: BP 100/58
[2024-10-18] MEDS ORDERED: ESTRADIOL1 M1 PO (12:05)
[2024-10-18] MEDS ORDERED: LIOT5 PO (12:07)
[2024-10-18] MEDS ORDERED: Lamictal150 MG PO (12:10)
[2024-10-18 12:21] VITALS: BP 100/58
--- NOTE | 2024-10-18 12:59 | NUR ---
CALLED REPORT TO [facility] AND SPOKE TO NURSE AISLINN AT 1220. CHARGE NURSE ROMINA ROWE WORKING ON TRANSPORTATION/COBRA TRANSFER
--- NOTE | 2024-10-18 14:09 | NUR ---
COBRA TRANSFER TO [facility]. TRANSFER ARRIVED AT 1355 AND TRANSFERRING PATIENT VIA GURNEY. DRESSED INCISION PRIOR TO LEAVING AND MEDICATED PRN WITH 5 MG OXY FOR RIDE. IV TO LEFT AC IN PLACE. BELONGINGS GATHERED AND SENT WITH PATIENT.
== END 2024-10-18 14:10 | disposition short-term general hospital (02) | DRG 862 ==
LOC: ER 16:45 → ERHOLD 16:46 → MEDS 16:46 → ENPENDDIS 10-18 12:51 → MEDS 10-18 14:10
PROVIDERS: Internal Medicine; Student in an Organized Health Care Education/Training Program; ADMIT Internal Medicine
DX: T81.41XA Infection following a procedure, superficial incisional surgical site, initial encounter (principal); A41.9 Sepsis, unspecified organism; L02.212 Cutaneous abscess of back [any part, except buttock and flank]; E87.1 Hypo-osmolality and hyponatremia; T81.44XA Sepsis following a procedure, initial encounter; I10 Essential (primary) hypertension; K21.9 Gastro-esophageal reflux disease without esophagitis; M79.7 Fibromyalgia; J44.9 Chronic obstructive pulmonary disease, unspecified; F32.A Depression, unspecified; F41.9 Anxiety disorder, unspecified; Z98.890 Other specified postprocedural states; Z90.710 Acquired absence of both cervix and uterus; Z90.49 Acquired absence of other specified parts of digestive tract; Z98.51 Tubal ligation status; Z87.891 Personal history of nicotine dependence; Z91.040 Latex allergy status; Z91.048 Other nonmedicinal substance allergy status; Z88.5 Allergy status to narcotic agent; Z88.8 Allergy status to other drugs, medicaments and biological substances; Z91.013 Allergy to seafood; Z79.899 Other long term (current) drug therapy; Z79.890 Hormone replacement therapy
CPT/HCPCS: 36415; 72132; 80048; 80053; 80202; 83605; 85025; 85651; 86140; 87040; 87070; 87075; 87077; 87147; 87186; 87205; 94640; 94664; 94760; 96361; 96365-59; 96375; 96376; 99284-25; A9270; G0378; J1644; J2543; J3010; J3370; J7030; J7040; J7050; Q9967

== ENCOUNTER 2025-05-10 09:43 | Day surgery (SDC) | payer OTHER ==
[~2025-05-10] VITALS: Ht 154.9 cm; Wt 101.5 kg
[~2025-05-10 09:43] MED LIST changes: +CYCL10 PO; +ESTRADIOL1 M1 PO; +GABA300 PO; +LIOT5 PO; +Lamictal150 MG PO; +SERT25 PO
[2025-05-10] MEDS ORDERED: CITALOPRAM HBR20 M9 (10:56)
[2025-05-10] MEDS ORDERED: CEPH500 (10:57)
[2025-05-10] MEDS ORDERED: BACLOFEN10 M4 PO (10:57)
[2025-05-10 13:08] VITALS: BP 111/63
== END 2025-05-10 12:55 | disposition home or self-care (01) ==
LOC: ORSCSDS 09:43
PROVIDERS: Surgery
PROC: 0DJD8ZZ Inspection of Lower Intestinal Tract, Via Natural or Artificial Opening Endoscopic (ICD-10-PCS; principal; 2025-05-10 11:15)
PROC: 0DB68ZX Excision of Stomach, Via Natural or Artificial Opening Endoscopic, Diagnostic (ICD-10-PCS; 2025-05-10 11:15)
DX: R19.4 Change in bowel habit (principal); R10.13 Epigastric pain; K29.70 Gastritis, unspecified, without bleeding; I10 Essential (primary) hypertension; E03.9 Hypothyroidism, unspecified; E78.5 Hyperlipidemia, unspecified; J44.89 Other specified chronic obstructive pulmonary disease; F32.9 Major depressive disorder, single episode, unspecified; F41.9 Anxiety disorder, unspecified; E11.9 Type 2 diabetes mellitus without complications; K76.0 Fatty (change of) liver, not elsewhere classified; Z87.891 Personal history of nicotine dependence; E66.9 Obesity, unspecified; Z68.41 Body mass index [BMI] 40.0-44.9, adult; Z79.899 Other long term (current) drug therapy
CPT/HCPCS: 88305; 88342; J2704; J7120

== ENCOUNTER → 2025-08-16 | Outpatient (CLI) | payer OTHER ==
[~2025-08-16] MED LIST changes: +BACLOFEN10 M4 PO; +CEPH500; +CITALOPRAM HBR20 M9
[2025-08-21 12:19] LABS: CORTISOL,U FREE - RATIO TO CRT 21.25 ug/g CRT; CORTISOL,URINE FREE - PER 24H 26.2 ug/d (<=45.0); CORTISOL,URN FREE - PER VOLUME 23.80 ug/L; CREATININE,URINE - PER 24H 1232 mg/d (500-1400); CREATININE,URINE - PER VOLUME 112 mg/dL; HOURS COLLECTED 24 hr
== END | disposition home or self-care (01) ==
LOC: LAB 06:00 → LAB SHORT 06:00
PROVIDERS: Internal Medicine Endocrinology, Diabetes & Metabolism
DX: D35.02 Benign neoplasm of left adrenal gland (principal)
CPT/HCPCS: 81050; 82530

== ENCOUNTER 2025-09-01 16:43 | Emergency (ER) | payer OTHER ==
[~2025-09-01] VITALS: Ht 162.6 cm; Wt 99.8 kg
[2025-09-01] MEDS ORDERED: Ondansetron HCl 2 MG / ML 2ML Vial IV ONE (17:00)
[2025-09-01 17:26] LABS: BASOPHILS ABSOLUTE AUTO 0.06 K/mm3 (0.00-0.23); BASOPHILS PERCENT AUTO 0 % (0-2); EOSINOPHILS ABSOLUTE AUTO 0.19 K/mm3 (0.00-0.68); EOSINOPHILS PERCENT AUTO 1 % (0-6); Hematocrit 47.0 % (33.0-51.0); Hemoglobin 15.3 g/dL (11.5-16.0); IMMATURE GRAN ABSOLUTE AUTO 0.07 K/mm3 (0.00-0.10); IMMATURE GRAN PERCENT AUTO 1 % (0-1); LYMPHOCYTES ABSOLUTE AUTO 5.18 K/mm3 (0.84-5.20); LYMPHOCYTES PERCENT AUTO 37 % (21-46); MONOCYTES ABSOLUTE AUTO 1.01 K/mm3 (0.16-1.47); MONOCYTES PERCENT AUTO 7 % (4-13); Mean Corpuscular HGB Conc 32.6 g/dL (31.5-36.5); Mean Corpuscular Volume 93 fL (80-100); NEUTROPHILS ABSOLUTE AUTO 7.67 K/mm3 (1.96-9.15); NEUTROPHILS PERCENT AUTO 54 % (41-73); NRBC ABSOLUTE 0.00 K/mm3 (0.00-0.02); NRBC Auto 0.0 /100 WBC (0.0-0.2); Platelet Count 293 K/mm3 (150-400); RDW Coefficient Variation 13.7 % (11.7-14.2); RDW Standard Deviation 46.7 fL (35.1-46.3)
[2025-09-01 17:41] LABS: Alanine Aminotransfer (ALT/SGP 28.0 U/L (12-78); Albumin, Blood 3.6 g/dL (3.4-5.0); Albumin/Globulin Ratio 1.0 (0.8-1.8); Anion Gap 8.0 mmol/L (3-11); Aspartate Aminotrans (AST/SGOT 19.0 U/L (12-37); Bilirubin, Total 0.3 mg/dL (0.1-1.0); Blood Urea Nitrogen 13.0 mg/dL (8-24); CO2, Blood 27.0 mmol/L (21-32); Calcium, Blood 8.7 mg/dL (8.5-10.1); Chloride, Blood 107.0 mmol/L (98-108); Creatinine, Blood 0.74 mg/dL (0.40-1.00); Globulin, Blood 3.7 g/dL (2.2-4.0); Glucose, Blood 88.0 mg/dL (70-99); Potassium, Blood 4.2 mmol/L (3.5-5.5); Sodium, Blood 138.0 mmol/L (136-145); Total Protein, Blood 7.3 g/dL (6.4-8.2)
[2025-09-01 18:40] LABS: Source, Urine Clean Catch
[2025-09-01 19:00] LABS: Bilirubin, Urine Neg (Neg); Color, Urine Yellow (P-Yellow); Glucose Qualitative, Urine Neg (Neg); Ketones, Urine Neg (Neg); Leukocyte Esterase, Urine 1+ (Neg); Protein, Urine Neg (Neg); Specific Gravity, Urine 1.015 (1.003-1.022); Urobilinogen, Urine NORM (Normal)
[2025-09-01 19:11] LABS: Red Blood Cells, Urine 0-2 /hpf (0-2)
[2025-09-01] MEDS ORDERED: SIME80CH PO (19:54)
[2025-09-01] MEDS ORDERED: METR500 PO (19:54)
[2025-09-01 21:10] VITALS: BP 133/71
== END 2025-09-01 21:11 | disposition home or self-care (01) ==
LOC: ER 16:43
PROVIDERS: Student in an Organized Health Care Education/Training Program
DX: R19.7 Diarrhea, unspecified (principal); K21.9 Gastro-esophageal reflux disease without esophagitis; I10 Essential (primary) hypertension; J44.9 Chronic obstructive pulmonary disease, unspecified; Z87.891 Personal history of nicotine dependence; Z91.030 Bee allergy status; Z91.013 Allergy to seafood; Z91.048 Other nonmedicinal substance allergy status; Z88.5 Allergy status to narcotic agent; Z91.040 Latex allergy status; Z88.8 Allergy status to other drugs, medicaments and biological substances; Z79.890 Hormone replacement therapy; Z79.1 Long term (current) use of non-steroidal anti-inflammatories (NSAID); Z79.899 Other long term (current) drug therapy; Z59.89 Other problems related to housing and economic circumstances
CPT/HCPCS: 74177; 80053; 81001; 83690; 83880; 85025; 87077; 87086; 87186; 93005; 93010; 96374-59; 99284-25; J2405; Q9967